=== PATIENT | male | born 1930 | race Caucasian/White ===

== ENCOUNTER 2022-07-14 20:32 | Inpatient (IN) | payer OTHER ==
[~2022-07-14] VITALS: Ht 175.3 cm; Wt 99.8 kg
[2022-07-14 20:40] VITALS: BP_SYST 138
[2022-07-14 23:02] LABS: BASOPHILS % (AUTO) 0.4 % (0.0-2.0); EOSINOPHILS # (AUTO) 0.7 K/uL (0.0-0.4); EOSINOPHILS % (AUTO) 10.7 % (0.0-4.0); HEMATOCRIT 39.7 % (36-54); LYMPHOCYTES # (AUTO) 1.3 K/uL (1.0-5.5); LYMPHOCYTES % (AUTO) 20.3 % (20.5-51.5); MEAN CORPUSCULAR VOLUME 86 fL (79.0-98.0); MONOCYTES # (AUTO) 0.5 K/uL (0.0-1.0); MONOCYTES % (AUTO) 8.4 % (1.7-9.3); NEUTROPHILS # (AUTO) 3.9 K/uL (1.8-7.7); NEUTROPHILS % (AUTO) 60.2 % (40.0-70.0); PLATELET COUNT (AUTO) 200 K/uL (130-430); RED BLOOD CELL COUNT(AUTO) 4.61 MIL/uL (4.2-6.2); RED CELL DISTRIBUTION WIDTH 16.1 % (9.0-15.0); WHITE BLOOD COUNT (AUTO) 6.4 K/uL (4.8-10.8)
[2022-07-15 00:14] LABS: ANION GAP 6 (5-15); CALCIUM 9.3 mg/dL (8.4-11.0); CHLORIDE 102 mmol/L (98-107); CREATININE 1.02 mg/dL (0.55-1.30); GLUCOSE 150 mg/dL (70-99); POTASSIUM 3.6 mmol/L (3.5-5.1); UREA NITROGEN, BLOOD 18 mg/dL (8-21)
[2022-07-15 00:23] LABS: ALANINE AMINOTRANSFERASE 27 U/L (12-78); ASPARTATE AMINOTRANSFERASE 49 U/L (10-37); TOTAL BILIRUBIN 1.2 mg/dL (0.0-1.0)
[2022-07-15] MEDS ORDERED: ATROPINE SULFATE 1 MG/10 ML SYRINGE IVP ONE (00:30)
[2022-07-15 02:54] VITALS: BP_SYST 154
[2022-07-15] MEDS ORDERED: ACETAMINOPHEN 500 MG TABLET PO PRN (03:15)
[2022-07-15 04:53] VITALS: BP_SYST 154
[2022-07-15 07:04] LABS: BASOPHILS % (AUTO) 0.5 % (0.0-2.0); EOSINOPHILS # (AUTO) 0.8 K/uL (0.0-0.4); EOSINOPHILS % (AUTO) 11.3 % (0.0-4.0); HEMATOCRIT 40.9 % (36-54); LYMPHOCYTES # (AUTO) 1.9 K/uL (1.0-5.5); MEAN CORPUSCULAR VOLUME 87 fL (79.0-98.0); MONOCYTES # (AUTO) 0.6 K/uL (0.0-1.0); NEUTROPHILS # (AUTO) 3.8 K/uL (1.8-7.7); NEUTROPHILS % (AUTO) 53.2 % (40.0-70.0); PLATELET COUNT (AUTO) 196 K/uL (130-430); RED BLOOD CELL COUNT(AUTO) 4.68 MIL/uL (4.2-6.2); RED CELL DISTRIBUTION WIDTH 15.9 % (9.0-15.0); WHITE BLOOD COUNT (AUTO) 7.2 K/uL (4.8-10.8)
[2022-07-15] MEDS: THEOPHYLLINE ANHYDROUS 200 MG TAB.SR.12H PO SCH ×3 (07:08→22:11)
[2022-07-15 08:00] VITALS: BP_SYST 157
[2022-07-15] MEDS: NACL 0.9% 1,000 ML IV SCH ×2 (08:00→23:20)
[2022-07-15] MEDS ORDERED: DOCUSATE SODIUM 100 MG CAPSULE PO PRN (08:00)
[2022-07-15] MEDS ORDERED: POTASSIUM CHLORIDE 20 MEQ TAB.PRT.SR PO PRN (08:00)
[2022-07-15] MEDS ORDERED: MUPIROCIN 2% TOPICAL OINTMENT 22 GM NS PRN (08:00)
[2022-07-15] MEDS ORDERED: ONDANSETRON HCL 4 MG/2 ML VIAL IVP PRN (08:00)
[2022-07-15] MEDS ORDERED: ACETAMINOPHEN 325 MG TABLET PO PRN ×2 (08:00→09:00)
[2022-07-15] MEDS ORDERED: DEXTROSE 50% JECT 50 ML DISP.SYRIN IVP PRN (08:00)
[2022-07-15] MEDS ORDERED: MAGNESIUM SULFATE 50 ML IV PRN (08:00)
[2022-07-15] MEDS ORDERED: INSULIN LISPRO SLIDING SCALE 100 UNITS/ML VIAL (humaLOG) SUBCUT PRN (08:00)
[2022-07-15] MEDS ORDERED: MORPHINE 2 MG/ML INJ. SYRINGE IVP PRN ×2 (08:00)
[2022-07-15 10:07] LABS: ANION GAP 4 (5-15); CALCIUM 9.1 mg/dL (8.4-11.0); CHLORIDE 102 mmol/L (98-107); CREATININE 1.08 mg/dL (0.55-1.30); GLUCOSE 140 mg/dL (70-99); POTASSIUM 3.3 mmol/L (3.5-5.1); THYROID STIMULATING HORMONE 5.51 uIu/mL (0.36-3.74); UREA NITROGEN, BLOOD 16 mg/dL (8-21)
[2022-07-15 10:32] LABS: INR 1.7 (0.80-1.20); PROTHROMBIN TIME 17.1 SECS (9.5-12.5)
[2022-07-15 11:27] VITALS: BP_SYST 157
[2022-07-15 15:31] VITALS: BP_SYST 128
[2022-07-15] MEDS ORDERED: TAMS-11 PO (19:48)
[2022-07-15 20:15] VITALS: BP_SYST 152
[2022-07-16] VITALS (7 sets, daily range): BP systolic 123–162
[2022-07-16] MEDS: THEOPHYLLINE ANHYDROUS 200 MG TAB.SR.12H PO SCH ×3 (06:12→21:50)
[2022-07-16] MEDS ORDERED: PHYTONADIONE Non-Formulary 5 MG TABLET PO ONE (07:00)
[2022-07-16] MEDS ORDERED: PHYTONADIONE (Vitamin K) Oral Solution PO ONE ×2 (07:15)
[2022-07-16 07:33] LABS: BASOPHILS % (AUTO) 0.2 % (0.0-2.0); EOSINOPHILS # (AUTO) 0.7 K/uL (0.0-0.4); EOSINOPHILS % (AUTO) 11.3 % (0.0-4.0); HEMATOCRIT 38.2 % (36-54); LYMPHOCYTES # (AUTO) 1.5 K/uL (1.0-5.5); LYMPHOCYTES % (AUTO) 24.3 % (20.5-51.5); MEAN CORPUSCULAR VOLUME 86 fL (79.0-98.0); MONOCYTES # (AUTO) 0.5 K/uL (0.0-1.0); MONOCYTES % (AUTO) 8.5 % (1.7-9.3); NEUTROPHILS # (AUTO) 3.4 K/uL (1.8-7.7); NEUTROPHILS % (AUTO) 55.7 % (40.0-70.0); PLATELET COUNT (AUTO) 183 K/uL (130-430); RED BLOOD CELL COUNT(AUTO) 4.46 MIL/uL (4.2-6.2); RED CELL DISTRIBUTION WIDTH 15.6 % (9.0-15.0); WHITE BLOOD COUNT (AUTO) 6.2 K/uL (4.8-10.8)
[2022-07-16 07:57] LABS: ANION GAP 5 (5-15); CALCIUM 8.6 mg/dL (8.4-11.0); CHLORIDE 105 mmol/L (98-107); CREATININE 0.94 mg/dL (0.55-1.30); GLUCOSE 99 mg/dL (70-99); POTASSIUM 3.1 mmol/L (3.5-5.1); UREA NITROGEN, BLOOD 13 mg/dL (8-21)
[2022-07-16] MEDS: ATORVASTATIN 20 MG TABLET PO SCH (09:12)
[2022-07-16] MEDS ORDERED: LIDOCAINE/EPI 1% 1:100000 20 ML VIAL INJ ONE (12:36)
[2022-07-16] MEDS ORDERED: LR 1,000 ML IV.SOLN IV ONE (12:36)
[2022-07-16] MEDS ORDERED: NS IRRIG SOLN 1000 ML IR ONE (12:36)
[2022-07-16] MEDS ORDERED: CLINDAMYCIN PHOSPHATE 600 MG/4 ML VIAL IV ONE (12:36)
[2022-07-16] MEDS ORDERED: CLINDAMYCIN 600 MG in D5W 50 ML IV ONE (13:00)
[2022-07-16] MEDS ORDERED: LABETALOL 100 MG/ 20ML VIAL IVP PRN (14:30)
[2022-07-16] MEDS ORDERED: HYDROmorphone 1 MG/ML INJ. CARTRIDGE IVP PRN (14:30)
[2022-07-16] MEDS ORDERED: LR 1,000 ML IV SCH (14:30)
[2022-07-16] MEDS ORDERED: ONDANSETRON HCL 4 MG/2 ML VIAL IVP PRN (14:30)
[2022-07-16] MEDS: CLINDAMYCIN HCL 150 MG CAPSULE PO SCH ×2 (15:00→21:08)
[2022-07-16] MEDS: NACL 0.9% 1,000 ML IV SCH (19:15)
[2022-07-17] MEDS: THEOPHYLLINE ANHYDROUS 200 MG TAB.SR.12H PO SCH (03:34)
[2022-07-17 07:00] VITALS: BP_SYST 167
[2022-07-17 08:00] VITALS: BP_SYST 167
[2022-07-17] MEDS: ATORVASTATIN 20 MG TABLET PO SCH (09:05)
[2022-07-17] MEDS: CLINDAMYCIN HCL 150 MG CAPSULE PO SCH (09:05)
[2022-07-17 09:32] LABS: BASOPHILS % (AUTO) 0.2 % (0.0-2.0); EOSINOPHILS # (AUTO) 0.7 K/uL (0.0-0.4); EOSINOPHILS % (AUTO) 10.9 % (0.0-4.0); HEMATOCRIT 37.4 % (36-54); LYMPHOCYTES # (AUTO) 1.2 K/uL (1.0-5.5); LYMPHOCYTES % (AUTO) 18.4 % (20.5-51.5); MEAN CORPUSCULAR VOLUME 86 fL (79.0-98.0); MONOCYTES # (AUTO) 0.6 K/uL (0.0-1.0); MONOCYTES % (AUTO) 10.1 % (1.7-9.3); NEUTROPHILS # (AUTO) 3.8 K/uL (1.8-7.7); NEUTROPHILS % (AUTO) 60.4 % (40.0-70.0); PLATELET COUNT (AUTO) 186 K/uL (130-430); RED BLOOD CELL COUNT(AUTO) 4.34 MIL/uL (4.2-6.2); RED CELL DISTRIBUTION WIDTH 15.8 % (9.0-15.0); WHITE BLOOD COUNT (AUTO) 6.3 K/uL (4.8-10.8)
[2022-07-17 09:38] LABS: ANION GAP 7 (5-15); CALCIUM 8.7 mg/dL (8.4-11.0); CHLORIDE 107 mmol/L (98-107); CREATININE 0.96 mg/dL (0.55-1.30); GLUCOSE 94 mg/dL (70-99); POTASSIUM 3.4 mmol/L (3.5-5.1); UREA NITROGEN, BLOOD 14 mg/dL (8-21)
[2022-07-17 11:40] VITALS: BP_SYST 147
[2022-07-17] MEDS ORDERED: CLIN-142 PO (13:33)
[2022-07-17 14:47] VITALS: BP_SYST 147
[2022-07-17 15:22] VITALS: BP_SYST 138
== END 2022-07-17 16:00 | disposition home or self-care (01) | DRG 261 ==
LOC: SED 20:32 → STU 07-15 01:25
PROVIDERS: ADMIT Family Medicine; ATTEND Family Medicine
PROC: 02HK3JZ Insertion of Pacemaker Lead into Right Ventricle, Percutaneous Approach (ICD-10-PCS; 2022-07-16)
PROC: 02H63JZ Insertion of Pacemaker Lead into Right Atrium, Percutaneous Approach (ICD-10-PCS; principal; 2022-07-16 12:36)
DX: I44.2 Atrioventricular block, complete (principal); E44.1 Mild protein-calorie malnutrition; E87.6 Hypokalemia; Z96.643 Presence of artificial hip joint, bilateral; E80.6 Other disorders of bilirubin metabolism; I48.0 Paroxysmal atrial fibrillation; E78.5 Hyperlipidemia, unspecified; Z20.822 Contact with and (suspected) exposure to COVID-19; I10 Essential (primary) hypertension; Z90.11 Acquired absence of right breast and nipple; Z85.828 Personal history of other malignant neoplasm of skin; Z79.899 Other long term (current) drug therapy; Z88.0 Allergy status to penicillin; I25.2 Old myocardial infarction; Z79.01 Long term (current) use of anticoagulants; Z68.32 Body mass index [BMI] 32.0-32.9, adult
CPT/HCPCS: 36415; 70450-TC; 71045; 73560-TC; 76000; 76376; 80048; 80053; 82962; 83735; 83880; 84443; 84484; 85025; 85610-TC; 93005; 93306; 94640; 94760; 96365; 96375; 99285; G0378; J0461; J3430; J3490; J7060; J7120; Q9967